=== PATIENT | male | born 1985 | race Asian ===

== ENCOUNTER 2021-12-04 10:36 | Emergency (ER) | payer OTHER, SELFPAY ==
--- NOTE | 2021-12-04 10:28 | DI.RAD.S_ITS ---
PROCEDURE: XR CHEST 1V INDICATIONS: fast heart beat TECHNIQUE: One view of the chest was acquired. COMPARISON: None. FINDINGS: Surgical changes and devices: None. Lungs and pleura: Lungs are clear. No pleural effusions or pneumothorax. Mediastinum: Mediastinal contours appear normal. Heart size is normal. Bones and chest wall: No suspicious bony lesions. Overlying soft tissues appear unremarkable. IMPRESSION: No acute cardiopulmonary disease. Dictated by: Jocelyn Hodges M.D. on 12/04/2021 at 11:18 Approved by: Jocelyn Hodges M.D. on 12/04/2021 at 11:18
[2021-12-04 10:50] VITALS: BP 138/87; PULSE 94; RESP 17; TEMP 36.8; O2SAT 98; BMI 35.6
[2021-12-04 10:57] LABS: Add Manual Diff / Slide Review NO; Basophils Absolute Auto 100 /uL (0-100); Basophils Percent Auto 0.8 % (0-2); Eosinophils Absolute Auto 300 /uL (0-450); Eosinophils Percent Auto 2.5 % (2-4); Hematocrit 44.9 % (41-53); Hemoglobin 15.2 g/dL (13.5-17.5); Lymphocytes Absolute Auto 3900 /uL (1100-4500); Lymphocytes Percent Auto 34.7 % (25-40); Mean Corpuscular HGB Conc 33.9 % (30-36); Mean Corpuscular Hemoglobin 29.5 PG (26-34); Monocytes Absolute Auto 800 /uL (0-900); Monocytes Percent Auto 7.1 % (3-14); Neutrophils Absolute Auto 6100 /uL (1500-7000); Neutrophils Percent Auto 54.9 % (50-75); Platelet Count 334 X10^3/uL (150-400); Red Blood Cell Count 5.16 X10^6/uL (4.5-5.9); Red Cell Distribution Width 12.5 % (11.6-14.8); White Blood Cell Count 11.1 X10^3/uL (4.5-11.0)
[2021-12-04 11:06] LABS: Prothrombin Time 10.9 SECONDS (10.1-12.7)
[2021-12-04 11:09] LABS: PTT Partial Thromboplastin Tim 28 SECONDS (26.4-36.2)
[2021-12-04 11:11] LABS: Blood Urea Nitrogen 16 mg/dL (9-20); Calcium 10.2 mg/dL (8.4-10.2); Carbon Dioxide 24 mmol/L (22-32); Chloride 102 mmol/L (98-107); Creatine Kinase 137 U/L (55-170); Estimated Glomerular Filt Rate > 60.0 mL/min (>60); Glucose 163 mg/dL (70-100); HEMOLYSIS < 15 (0-50); Magnesium 2.3 mg/dL (1.6-2.3); Potassium 3.7 mmol/L (3.4-5.1); Sodium 141 mmol/L (137-145)
[2021-12-04 11:23] LABS: Troponin I < 0.012 ng/mL (0.01-0.034)
[2021-12-04 11:26] LABS: CKMB % Relative Index 0.3 % (1.5-5.0); Creatine Kinase MB 0.42 ng/mL (<2.37)
[2021-12-04 11:36] LABS: COVID19 -Nasal RAPID Negative (Negative)
[2021-12-04 11:56] LABS: Thyroid Stimulating Hormone 0.703 uIU/mL (0.47-4.68)
--- NOTE | 2021-12-04 12:16 | ED.ARRPALP ---
HPI - Arrhythmia/Palpitations <GONZALEZ Lomeli - Last Filed: 12/04/21 13:12> General Chief Complaint: Arrhythmia/Palpitations Stated Complaint: tachycardia Time Seen by Provider: 12/04/21 12:01 Source: patient and EMS Mode of arrival: EMS History of Present Illness HPI narrative: 36-year-old male with history of diabetes, hypertension on lisinopril presents to the emergency department by ambulance after an episode of diaphoresis just prior to arrival and feeling lightheaded, patient reports tingly all over. Patient also reports he was monitoring his heart rate on his apple watch and he noticed a high rate of 146. Patient endorses a history of anxiety and depression, he is currently on Lexapro, he also endorses increased stress lately. Patient is COVID vaccinated x3, last vaccination was [employer] and it was 11/02/2021. Patient denies any history of cardiac disease, he denies any shortness of breath, chest pain or pressure, radiation of his symptoms, difficulty breathing, syncope, nausea, vomiting or other. Patient also endorses he recently completed a 2 week course of omeprazole for his GERD which has been constant problem for him lately but he has ran out. Patient denies eating anything today, he denies any recent illness, or sick contacts. He says he only has a cough from his lisinopril. Patient denies any fever. Related Data Previous Rx's Medication Instructions Recorded ibuprofen 800 mg tablet 800 mg PO Q8HP PRN #20 tab 08/10/17 omeprazole 20 mg tablet,delayed 20 mg PO DAILY 20 Days #20 tab 12/04/21 release Allergies Allergy/AdvReac Type Severity Reaction Status Date / Time No Known Drug Allergies Allergy Verified 12/04/21 10:49 Patient History <GONZALEZ Lomeli - Last Filed: 12/04/21 13:12> Social History Smoking Status: Never smoker Smoking Status: Never smoker Substance Use Type: does not use Exam <GONZALEZ Lomeli - Last Filed: 12/04/21 13:12> Narrative Exam Narrative: Independently reviewed vitals signs and nursing notes. General: Awake, alert, nontoxic, no cardiorespiratory distress Head/Neck: Atraumatic, neck full range of motion Eyes: EOMI, conjunctiva normal Nose: nares patent, no rhinorrhea Mouth/Throat: moist mucus membranes, posterior pharynx normal, no oral lesions Cardio: Regular rate and rhythm without tachycardia, no additional heart sounds, no murmurs, no peripheral edema Respiratory: respirations unlabored without wheezing, stridor, or rales. No retractions. GI: Abdomen soft, nontender MSK: Moves all extremities, neurovascularly intact Skin: Normal capillary refill, no rash Neuro: Normal speech and cognition, normal gait, no neurologic deficits, cranial nerves 2-12 are grossly intact Initial Vital Signs Initial Vital Signs: Vital Signs Temperature 98.3 F 12/04/21 10:50 Pulse Rate 94 H 12/04/21 10:50 Respiratory Rate 17 12/04/21 10:50 Blood Pressure 138/87 12/04/21 10:50 Pulse Oximetry 98 12/04/21 10:50 <Talia Pfeiffer DO - Last Filed: 12/07/21 13:07> Initial Vital Signs Initial Vital Signs: Vital Signs Temperature 98.3 F 12/04/21 10:50 Pulse Rate 94 H 12/04/21 10:50 Respiratory Rate 17 12/04/21 10:50 Blood Pressure 138/87 12/04/21 10:50 Pulse Oximetry 98 12/04/21 10:50 Course <NAHED LomeliP - Last Filed: 12/04/21 13:12> Orders Ordered: Discontinued Medications Famotidine (Famotidine 20 Mg Tablet) 20 mg PO NOW ONE Stop: 12/04/21 12:21 Last Admin: 12/04/21 13:11 Dose: 20 mg Documented by: LINDA Sodium Chloride (Normal Saline 0.9%) 1,000 mls @ 1,000 mls/hr IV BOLUS ONE Stop: 12/04/21 13:20 Last Admin: 12/04/21 13:15 Dose: Not Given Documented by: LINDA Lorazepam (Lorazepam 0.5 Mg Tablet) 1 mg PO NOW ONE Stop: 12/04/21 12:21 Last Admin: 12/04/21 13:11 Dose: 1 mg Documented by: LINDA Vital Signs Vital signs: Vital Signs - 8 hr 12/04/21 10:50 Temperature 98.3 F Pulse Rate 94 H Respiratory Rate 17 Blood Pressure 138/87 Pulse Oximetry 98 <Talia Pfeiffer DO - Last Filed: 12/07/21 13:07> Orders Ordered: Discontinued Medications Famotidine (Famotidine 20 Mg Tablet) 20 mg PO NOW ONE Stop: 12/04/21 12:21 Last Admin: 12/04/21 13:11 Dose: 20 mg Documented by: LINDA Sodium Chloride (Normal Saline 0.9%) 1,000 mls @ 1,000 mls/hr IV BOLUS ONE Stop: 12/04/21 13:20 Last Admin: 12/04/21 13:15 Dose: Not Given Documented by: LINDA Lorazepam (Lorazepam 0.5 Mg Tablet) 1 mg PO NOW ONE Stop: 12/04/21 12:21 Last Admin: 12/04/21 13:11 Dose: 1 mg Documented by: LINDA Vital Signs Vital signs: Vital Signs - 8 hr 12/04/21 10:50 Temperature 98.3 F Pulse Rate 94 H Respiratory Rate 17 Blood Pressure 138/87 Pulse Oximetry 98 MDM - Arrhythmia/Palpitations <GONZALEZ Lomeli - Last Filed: 12/04/21 13:12> Lab Data Result diagrams: 12/04/21 10:30 12/04/21 10:30 Labs: Lab Results 12/04/21 12/04/21 12/04/21 Range/Units 10:30 10:30 10:30 WBC 11.1 H (4.5-11.0) X10^3/uL RBC 5.16 (4.5-5.9) X10^6/uL Hgb 15.2 (13.5-17.5) g/dL Hct 44.9 (41-53) % MCV 87.0 (80-100) fL MCH 29.5 (26-34) PG MCHC 33.9 (30-36) % RDW 12.5 (11.6-14.8) % Plt Count 334 (150-400) X10^3/uL Neut % (Auto) 54.9 (50-75) % Lymph % (Auto) 34.7 (25-40) % Isabela % (Auto) 7.1 (3-14) % Eos % (Auto) 2.5 (2-4) % Baso % (Auto) 0.8 (0-2) % Neut # (Auto) 6100 (1314-4186) /uL Lymph # (Auto) 3900 (5804-3264) /uL Isabela # (Auto) 800 (0-900) /uL Eos # (Auto) 300 (0-450) /uL Baso # (Auto) 100 (0-100) /uL PT 10.9 (10.1-12.7) SECONDS INR 1.0 (0.9-1.3) APTT 28 (26.4-36.2) SECONDS Sodium 141 (137-145) mmol/L Potassium 3.7 (3.4-5.1) mmol/L Chloride 102 (98-107) mmol/L Carbon Dioxide 24 (22-32) mmol/L BUN 16 (9-20) mg/dL Creatinine 1.00 (0.66-1.25) mg/dL Estimated GFR > 60.0 (>60) mL/min BUN/Creatinine Ratio 16.0 (6-22) Glucose 163 H (70-100) mg/dL Calcium 10.2 (8.4-10.2) mg/dL Magnesium 2.3 (1.6-2.3) mg/dL Total Creatine Kinase 137 (55-170) U/L CK-MB (CK-2) 0.42 (<2.37) ng/mL CK-MB (CK-2) Rel Index 0.3 L (1.5-5.0) % Troponin I < 0.012 (0.01-0.034) ng/mL TSH (0.47-4.68) uIU/mL SARS-CoV-2 (PCR) (Negative) 12/04/21 12/04/21 Range/Units 10:30 10:40 WBC (4.5-11.0) X10^3/uL RBC (4.5-5.9) X10^6/uL Hgb (13.5-17.5) g/dL Hct (41-53) % MCV (80-100) fL MCH (26-34) PG MCHC (30-36) % RDW (11.6-14.8) % Plt Count (150-400) X10^3/uL Neut % (Auto) (50-75) % Lymph % (Auto) (25-40) % Isabela % (Auto) (3-14) % Eos % (Auto) (2-4) % Baso % (Auto) (0-2) % Neut # (Auto) (4680-7610) /uL Lymph # (Auto) (1393-0004) /uL Isabela # (Auto) (0-900) /uL Eos # (Auto) (0-450) /uL Baso # (Auto) (0-100) /uL PT (10.1-12.7) SECONDS INR (0.9-1.3) APTT (26.4-36.2) SECONDS Sodium (137-145) mmol/L Potassium (3.4-5.1) mmol/L Chloride (98-107) mmol/L Carbon Dioxide (22-32) mmol/L BUN (9-20) mg/dL Creatinine (0.66-1.25) mg/dL Estimated GFR (>60) mL/min BUN/Creatinine Ratio (6-22) Glucose (70-100) mg/dL Calcium (8.4-10.2) mg/dL Magnesium (1.6-2.3) mg/dL Total Creatine Kinase (55-170) U/L CK-MB (CK-2) (<2.37) ng/mL CK-MB (CK-2) Rel Index (1.5-5.0) % Troponin I (0.01-0.034) ng/mL TSH 0.703 (0.47-4.68) uIU/mL SARS-CoV-2 (PCR) Negative (Negative) Imaging Data Chest x-ray: Radiologist's Impresson: Chest x-ray report did not carry over from PACS system. Radiology report reads lungs are clear, no pleural effusions or pneumothorax. Mediastinum: Mediastinal contours appear normal. Heart size is normal. Bones and chest wall: No suspicious bony lesions. Overlying soft tissues appear unremarkable. Impression: No acute cardiopulmonary disease. Dictated by Jocelyn Hodges MD on 12/04/2021 at 11:18 a.m. ECG Data Interpretation: EKG reviewed by myself and Dr. Pfeiffer at [1053] reveals normal sinus rhythm at [94] bpm with regular axis and intervals. No STEMI, ST segment changes, arrhythmia, or acute ischemic changes. MDM Narrative Medical decision making narrative: 36-year-old male presents to the emergency department via EMS after experiencing an episode of palpitations and diaphoresis at home for the 1st time. Patient denies having any chest pain or pressure, radiation, endorses feeling intermittent tingling in his extremities without numbness. Patient is afebrile, without signs of your eye or illness, patient reports he typically has a history of slightly elevated wbc's, only remarkable lab finding was the mild leukocytosis of 11.1. Patient's COVID test was negative, glucose is 163, negative troponin, normal TSH, magnesium of 2.3. Patient's 12 lead is normal sinus rhythm with a ventricular rate of 94. EKG without ST changes. Patient no longer had symptoms while in the emergency department, he endorses a history of anxiety, is currently on Lexapro. He states he was watching his apple watch and the heart rate kept changing from the 80s, to the 100s, to the 50s, to the 140s and he became anxious and states he did not feel safe driving because of that. This is most likely an episode of anxiety however patient does have a history of diabetes and hypertension the and endorses hyperlipidemia. His heart score is 2 points indicating low risk of major adverse cardiac event. Recommend patient follow-up with his primary care provider for a stress test and possible Holter monitoring. Chest pain considered including OH, PE, pneumothorax, pneumonia, aortic dissection, and pleurisy. Patient reports no radiation, no further diaphoresis, no provocation with exertion, and no vomiting. Patient is appropriate and amenable to discharge home. Vital signs are stable on repeat examination is unremarkable. Patient has been informed of results. Patient has been given strict return to ER precautions for any new or worsening symptoms. Patient understands to follow up closely with outpatient providers as instructed. Patient understands plan and agrees to discharge home. All questions and concerns answered at this time. <Talia Pfeiffer, - Last Filed: 12/07/21 13:07> Lab Data Labs: Lab Results 12/04/21 12/04/21 12/04/21 Range/Units 10:30 10:30 10:30 WBC 11.1 H (4.5-11.0) X10^3/uL RBC 5.16 (4.5-5.9) X10^6/uL Hgb 15.2 (13.5-17.5) g/dL Hct 44.9 (41-53) % MCV 87.0 (80-100) fL MCH 29.5 (26-34) PG MCHC 33.9 (30-36) % RDW 12.5 (11.6-14.8) % Plt Count 334 (150-400) X10^3/uL Neut % (Auto) 54.9 (50-75) % Lymph % (Auto) 34.7 (25-40) % Isabela % (Auto) 7.1 (3-14) % Eos % (Auto) 2.5 (2-4) % Baso % (Auto) 0.8 (0-2) % Neut # (Auto) 6100 (8540-5775) /uL Lymph # (Auto) 3900 (0976-2670) /uL Isabela # (Auto) 800 (0-900) /uL Eos # (Auto) 300 (0-450) /uL Baso # (Auto) 100 (0-100) /uL PT 10.9 (10.1-12.7) SECONDS INR 1.0 (0.9-1.3) APTT 28 (26.4-36.2) SECONDS Sodium 141 (137-145) mmol/L Potassium 3.7 (3.4-5.1) mmol/L Chloride 102 (98-107) mmol/L Carbon Dioxide 24 (22-32) mmol/L BUN 16 (9-20) mg/dL Creatinine 1.00 (0.66-1.25) mg/dL Estimated GFR > 60.0 (>60) mL/min BUN/Creatinine Ratio 16.0 (6-22) Glucose 163 H (70-100) mg/dL Calcium 10.2 (8.4-10.2) mg/dL Magnesium 2.3 (1.6-2.3) mg/dL Total Creatine Kinase 137 (55-170) U/L CK-MB (CK-2) 0.42 (<2.37) ng/mL CK-MB (CK-2) Rel Index 0.3 L (1.5-5.0) % Troponin I < 0.012 (0.01-0.034) ng/mL TSH (0.47-4.68) uIU/mL SARS-CoV-2 (PCR) (Negative) 12/04/21 12/04/21 Range/Units 10:30 10:40 WBC (4.5-11.0) X10^3/uL RBC (4.5-5.9) X10^6/uL Hgb (13.5-17.5) g/dL Hct (41-53) % MCV (80-100) fL MCH (26-34) PG MCHC (30-36) % RDW (11.6-14.8) % Plt Count (150-400) X10^3/uL Neut % (Auto) (50-75) % Lymph % (Auto) (25-40) % Isabela % (Auto) (3-14) % Eos % (Auto) (2-4) % Baso % (Auto) (0-2) % Neut # (Auto) (1575-4546) /uL Lymph # (Auto) (0600-5326) /uL Isabela # (Auto) (0-900) /uL Eos # (Auto) (0-450) /uL Baso # (Auto) (0-100) /uL PT (10.1-12.7) SECONDS INR (0.9-1.3) APTT (26.4-36.2) SECONDS Sodium (137-145) mmol/L Potassium (3.4-5.1) mmol/L Chloride (98-107) mmol/L Carbon Dioxide (22-32) mmol/L BUN (9-20) mg/dL Creatinine (0.66-1.25) mg/dL Estimated GFR (>60) mL/min BUN/Creatinine Ratio (6-22) Glucose (70-100) mg/dL Calcium (8.4-10.2) mg/dL Magnesium (1.6-2.3) mg/dL Total Creatine Kinase (55-170) U/L CK-MB (CK-2) (<2.37) ng/mL CK-MB (CK-2) Rel Index (1.5-5.0) % Troponin I (0.01-0.034) ng/mL TSH 0.703 (0.47-4.68) uIU/mL SARS-CoV-2 (PCR) Negative (Negative) Discharge Plan Departure Patient Disposition: Home Clinical Impression: Palpitations, Anxiety Instructions: Arrhythmias, DI for Anxiety -- Adult Activity Restrictions/Additional Instructions: *You have been diagnosed with palpitations which is the feeling of a racing heart. Noble, your workup today is reassuring that there is not a dangerous cause for your symptoms today. Your x-ray shows a normal size heart, without any signs of pneumonia, heart failure, or major vessel problem. There is no signs of kidney damage, liver disease, thyroid disease, heart strain, infection, or other significant problem. Please follow-up with [facility] N/C if this is worse a Holter monitor or at minimum a cardiac stress test. I suspect this is most likely related to anxiety, dehydration, and your recent GERD problem. I have sent some more omeprazole to your pharmacy. *What to do: *Please continue to take your regular medications as directed. [x] New medication prescriptions sent to your pharmacy: [[facility] ] [ ] New medication written as a paper prescription [ ] No new medications given *Please follow up with your primary care provider in 2-3 days, call for an appointment. Let them know you were seen in the Emergency Department and that we ask that you be seen in follow up. We will electronically transmit a record of today's note if your PCP is in our system *If you do not have a primary care provider please contact the [facility] Resource line at [phone]. They will ask some questions about your medical history and help get you set up with a doctor in the community. *Return to Emergency Department if you should have any new, worsening or concerning symptoms, such as [fever greater than 101F, chills, worsening pain, persistent vomiting or other bothersome symptoms] Prescriptions: New omeprazole 20 mg tablet,delayed release (DR/EC) 20 mg PO DAILY 20 Days Qty: 20 0RF No Action ibuprofen 800 MG tablet 800 mg PO Q8HP PRNQty: 20 0RF Referrals: Osvaldo Madison PA-C [Primary Care Provider] - <Talia Pfeiffer DO - Last Filed: 12/07/21 13:07> Cosign ED Attending Ashleyature Attestation: I was immediately available in the department for consultation. Documentation has been reviewed.
[2021-12-04] MEDS: FAMOTIDINE 20 MG TABLET PO (13:11)
[2021-12-04] MEDS: LORazepam 0.5 MG TABLET 1 MG PO (13:11)
[2021-12-04 13:27] VITALS: BP 132/77; PULSE 82; RESP 16; O2SAT 98
== END 2021-12-04 13:27 | disposition home or self-care (01) ==
PROVIDERS: Emergency Medicine; Emergency Provider Nurse Practitioner Critical Care Medicine; PCP Physician Assistant
DX: R00.2 Palpitations (principal); R61 Generalized hyperhidrosis; F41.9 Anxiety disorder, unspecified; Z20.822 Contact with and (suspected) exposure to COVID-19
CPT/HCPCS: 71045; 80048; 82550; 82553; 83735; 84443; 84484; 85025; 85610; 85730; 87635; 93005; 93010; 99283; 99284; C9803; A9270